=== PATIENT | female | born 2000 | race African-American/Black ===

== ENCOUNTER 2018-03-28 14:10 | Inpatient (IN) ==
[2018-03-28] MEDS ORDERED: LACTATED RINGERS 1,000 ML IV ONE (14:21)
[2018-03-28] MEDS ORDERED: MEPERIDINE 25 MG/1 ML VIAL IM ONE (14:23)
[2018-03-28] MEDS ORDERED: SODIUM CHLORIDE 0.9% 50 ML IV ONE (14:32)
[2018-03-28 14:38] LABS: Basophils % 0.1 % (0.0-0.8); Eosinophils # 0.1 10*3/uL (0.0-0.87); Eosinophils % 0.6 % (0.00-10.9); Hematocrit 29.4 VOL% (35.7-47.0); Hemoglobin 10.1 GM/DL (12.0-16.0); Immature Granulocytes % 0.5 %; Immature Granulocytes Absolute 0.04 #; Lymphocytes # 1.2 10*3/uL (1.4-4.0); Lymphocytes % 13.5 % (21.3-54.2); Mean Corpuscular HGB Conc 34.4 GM/DL (32-36); Mean Corpuscular Hemoglobin 31 PG (27-34); Mean Corpuscular Volume 90.7 FL (87-102); Mean Platelet Volume 9.9 FL (9.6-12.0); Monocytes # 1.6 10*3/uL (0.11-0.8); Monocytes % 18.4 % (1.7-12.7); Neutrophils # 5.8 10*3/uL (1.4-7.4); Neutrophils % 66.9 % (38.7-73.9); Platelet Count 191 T/CUMM (130-400); Red Blood Count 3.24 MC/CUMM (3.8-5.5); White Blood Count 8.7 T/CUMM (4-12)
[2018-03-28] MEDS: ACETAMINOPHEN 500 MG TABLET PO SCH ×2 (14:40→20:44)
[2018-03-28] MEDS: cefTRIAXone 1,000 MG in SYRINGE 1 EACH IV SCH (15:04)
[2018-03-28] MEDS: LACTATED RINGERS 1,000 ML IV SCH ×2 (16:49→23:07)
[2018-03-28 17:34] LABS: Eosinophils 1 % (0-10); Lymphocytes 14 % (20-55); Segmented Neutrophils 75 % (50-85)
[2018-03-28 17:35] LABS: Anisocytosis Slight; Microcytosis Slight; Polychromasia Slight
[2018-03-28 17:36] LABS: Platelet Estimate Normal; Total Cells Counted 100
[2018-03-28 18:27] LABS: Apearance,Urine CLOUDY (Clear); Bilirubin,Urine Negative (Negative); Blood, Urine Moderate mg/dL (Negative); Glucose,Urine (UA) Negative (Negative); Ketones,Urine Negative (Negative); Nitrite,Urine Positive (Negative); Protein,Urine 100 MG/DL; Urine Color Yellow (Yellow); Urine Specific Gravity 1.014 (1.001-1.035)
[2018-03-28 19:11] LABS: Bacteria,Urine Many /HPF (Few); Squamous Epithelial Cell,Urine Occasional /HPF (0-10); WBC,Urine 25-50 /HPF (0-6)
[2018-03-29] MEDS: ACETAMINOPHEN 500 MG TABLET PO SCH ×4 (02:35→21:17)
[2018-03-29] MEDS: LACTATED RINGERS 1,000 ML IV SCH ×3 (05:34→18:00)
[2018-03-29] MEDS: DOCUSATE SODIUM 100 MG CAPSULE PO SCH (08:41)
[2018-03-29] MEDS: FERROUS SULFATE ER 140 MG TABLET PO SCH (08:42)
[2018-03-29] MEDS: cefTRIAXone 1,000 MG in SYRINGE 1 EACH IV SCH (14:05)
[2018-03-30] MEDS: LACTATED RINGERS 1,000 ML IV SCH ×2 (01:00→07:00)
[2018-03-30] MEDS: ACETAMINOPHEN 500 MG TABLET PO SCH ×2 (02:15→08:48)
[2018-03-30] MEDS: FERROUS SULFATE ER 140 MG TABLET PO SCH (08:49)
[2018-03-30] MEDS: DOCUSATE SODIUM 100 MG CAPSULE PO SCH (08:50)
[2018-03-30 09:16] LABS: Basophils % 0.2 % (0.0-0.8); Eosinophils # 0.1 10*3/uL (0.0-0.87); Eosinophils % 1.2 % (0.00-10.9); Hematocrit 24.8 VOL% (35.7-47.0); Hemoglobin 8.5 GM/DL (12.0-16.0); Immature Granulocytes % 0.4 %; Immature Granulocytes Absolute 0.02 #; Lymphocytes # 1.4 10*3/uL (1.4-4.0); Lymphocytes % 27.5 % (21.3-54.2); Mean Corpuscular HGB Conc 34.3 GM/DL (32-36); Mean Corpuscular Hemoglobin 31 PG (27-34); Mean Corpuscular Volume 90.5 FL (87-102); Mean Platelet Volume 10.2 FL (9.6-12.0); Monocytes # 0.9 10*3/uL (0.11-0.8); Monocytes % 17.6 % (1.7-12.7); Neutrophils # 2.6 10*3/uL (1.4-7.4); Neutrophils % 53.1 % (38.7-73.9); Platelet Count 179 T/CUMM (130-400); Red Blood Count 2.74 MC/CUMM (3.8-5.5); Red Cell Distribution Width 12.9 % (9.3-17.3); White Blood Count 4.9 T/CUMM (4-12)
[2018-03-30 09:36] LABS: Atypical Lymphocytes Few; Eosinophils 1 % (0-10); Lymphocytes 24 % (20-55); Segmented Neutrophils 67 % (50-85); Total Cells Counted 100
[2018-03-30 09:37] LABS: Microcytosis 1+; Platelet Estimate Adequate
[2018-03-30 09:40] LABS: Alanine Aminotransferase 42 U/L (13-56); Alkaline Phosphatase 62 U/L (45-117); Aspartate Amino Transferase 27 U/L (0-37); Bilirubin,Total < 0.39 MG/DL (0.2-1.0); Blood Urea Nitrogen 4 MG/DL (7-18); Calcium 7.7 MG/DL (8.5-10.1); Glucose 82 MG/DL (74-106); Osmolality,Calculated 281.8 MOS/KG (273-304); Potassium 3.5 MMOL/L (3.5-5.1); Sodium 144 MMOL/L (136-145); Total Protein 5.4 G/DL (6.4-8.3)
[2018-03-30 12:42] VITALS: BP 103/58
[2018-03-30] MEDS: cefTRIAXone 1,000 MG in SYRINGE 1 EACH IV SCH (12:53)
== END 2018-03-30 14:00 | disposition home or self-care (01) | DRG 833 ==
LOC: N.OB 14:10
PROVIDERS: ADMIT Obstetrics & Gynecology; ATTEND Obstetrics & Gynecology

== ENCOUNTER 2018-08-14 16:00 | Inpatient (IN) ==
[2018-08-14] MEDS ORDERED: ONDANSETRON 4 MG/2 ML VIAL IV PRN (16:20)
[2018-08-14] MEDS ORDERED: DINOPROSTONE 10 MG VAG.INSERT VAG ONE (16:20)
[2018-08-14] MEDS ORDERED: MEPERIDINE 25 MG/1 ML VIAL IV PRN (16:20)
[2018-08-14] MEDS ORDERED: LACTATED RINGERS 1,000 ML IV SCH (16:30)
[2018-08-14] MEDS ORDERED: PENICILLIN G POTASSIUM INJ 6,000,000 UNIT in SODIUM CHLORIDE 0.9% 100 ML IV ONE (17:00)
[2018-08-14 17:55] LABS: Albumin 2.8 G/DL (3.4-5.0); Bilirubin,Total 0.6 MG/DL (0.2-1.0); Calcium 8.3 MG/DL (8.5-10.1); Osmolality,Calculated 277.1 MOS/KG (273-304); Total Protein 6.9 G/DL (6.4-8.3); Uric Acid 5.6 MG/DL (2.6-6.0)
[2018-08-14 18:29] LABS: Basophils % 0.2 % (0.0-0.8); Eosinophils % 0.2 % (0.00-10.9); Hematocrit 29.7 VOL% (35.7-47.0); Hemoglobin 9.2 GM/DL (12.0-16.0); Immature Granulocytes % 0.4 %; Immature Granulocytes Absolute 0.02 #; Lymphocytes # 1.3 10*3/uL (1.4-4.0); Lymphocytes % 27.9 % (21.3-54.2); Mean Corpuscular Volume 85.3 FL (87-102); Mean Platelet Volume 11.2 FL (9.6-12.0); Monocytes % 13.4 % (1.7-12.7); Neutrophils % 57.9 % (38.7-73.9); Platelet Count 234 T/CUMM (130-400); Red Blood Count 3.48 MC/CUMM (3.8-5.5); Red Cell Distribution Width 12.8 % (9.3-17.3); White Blood Count 4.6 T/CUMM (4-12)
[2018-08-14] MEDS: BUTORPHANOL 2 MG/ML VIAL IV PRN (23:58)
[2018-08-15] MEDS: BUTORPHANOL 2 MG/ML VIAL IV PRN ×2 (03:30→07:06)
[2018-08-15] MEDS ORDERED: OXYTOCIN/LR 20 UNIT/1,000 ML BAG IV SCH (06:00)
[2018-08-15] MEDS ORDERED: PENICILLIN G POTASSIUM INJ 3,000,000 UNIT in SODIUM CHLORIDE 0.9% 100 ML IV SCH ×2 (08:00→09:00)
[2018-08-15] MEDS ORDERED: CITRIC ACID/SODIUM CITRATE 30 ML UDCUP PO ONE (08:33)
[2018-08-15] MEDS ORDERED: ePHEDrine 50 MG/ML AMP IV PRN (08:33)
[2018-08-15] MEDS ORDERED: hydrOXYzine HCL 25 MG/1 ML VIAL IM PRN (08:33)
[2018-08-15] MEDS ORDERED: diphenhydrAMINE 50 MG/1 ML VIAL IV PRN ×2 (08:33)
[2018-08-15] MEDS ORDERED: PROMETHAZINE 25 MG/1 ML VIAL IM ONE (08:33)
[2018-08-15] MEDS ORDERED: LACTATED RINGERS 1,000 ML IV ONE (08:33)
[2018-08-15] MEDS ORDERED: NALOXONE 0.4 MG/ML VIAL IV PRN (08:33)
[2018-08-15] MEDS ORDERED: FAMOTIDINE 20 MG/2 ML VIAL IV ONE (08:33)
[2018-08-15] MEDS ORDERED: fentaNYL 2 MCG/ROPIV 0.2% EPID 100 ML EPIDURAL SCH (09:00)
[2018-08-15] MEDS: LACTATED RINGERS 1,000 ML IV SCH ×2 (09:02→17:11)
[2018-08-15 11:05] LABS: Apearance,Urine CLEAR (Clear); Bilirubin,Urine Negative (Negative); Blood, Urine Negative (Negative); Glucose,Urine (UA) Negative (Negative); Ketones,Urine 5 mg/dL (Negative); Nitrite,Urine Negative (Negative); Protein,Urine Negative; RBC,Urine <1 /HPF (0-4); Urine Color Straw (Yellow); Urine Specific Gravity 1.005 (1.001-1.035); Urine Urobilinogen < 2.0 EU/DL (0.2-1.0); WBC,Urine 1 /HPF (0-6)
[2018-08-15] MEDS ORDERED: ROPIVACAINE 0.5% 30 ML VIAL ONE (14:51)
[2018-08-15] MEDS ORDERED: miSOPROStol 200 MCG TABLET ONE (16:01)
[2018-08-15] MEDS ORDERED: TRANEXAMIC ACID 1,000 MG/10 ML VIAL ONE (16:01)
[2018-08-15] MEDS ORDERED: LIDOCAINE 1% 50 ML VIAL ONE (16:01)
[2018-08-15] MEDS ORDERED: METHYLERGONOVINE 0.2 MG/1 ML AMP ONE (16:02)
[2018-08-15] MEDS ORDERED: OXYTOCIN/LR 0 UNIT/0 ML BAG IV ONE (16:02)
[2018-08-15] MEDS ORDERED: CARBOPROST TROMETHAMINE 250 MCG/ML AMP IM ONE (16:02)
[2018-08-15] MEDS ORDERED: OXYTOCIN 10 UNIT/ML VIAL ONE (16:31)
[2018-08-15] MEDS ORDERED: OXYTOCIN/LR 30 UNIT/1,000 ML BAG IV ONE (16:38)
[2018-08-15] MEDS ORDERED: OXYTOCIN 10 UNIT/ML VIAL IV ONE (16:38)
[2018-08-15] MEDS ORDERED: miSOPROStol 200 MCG TABLET RECTAL ONE (16:42)
[2018-08-15] MEDS ORDERED: MAGNESIUM SULF RIDER 100 ML IV ONE (16:44)
[2018-08-15] MEDS ORDERED: MAGNESIUM SULF DRIP 40 GM/1,000 ML ML IV SCH (17:00)
[2018-08-15 18:43] LABS: Apearance,Urine CLEAR (Clear); Bilirubin,Urine Negative (Negative); Blood, Urine Large mg/dL (Negative); Glucose,Urine (UA) 50 mg/dL (Negative); Hyaline Casts,Urine 3 /LPF (0-3); Ketones,Urine 5 mg/dL (Negative); Mucus,Urine Occasional /LPF (Occasional); Nitrite,Urine Negative (Negative); Protein,Urine Negative; RBC,Urine 184 /HPF (0-4); Urine Color Colorless (Yellow); Urine Specific Gravity 1.004 (1.001-1.035); Urine Urobilinogen < 2.0 EU/DL (0.2-1.0); WBC,Urine 1 /HPF (0-6)
[2018-08-16] MEDS ORDERED: IBUPROFEN 800 MG TABLET PO PRN (07:06)
[2018-08-16 07:08] LABS: Basophils % 0.4 % (0.0-0.8); Eosinophils % 0.2 % (0.00-10.9); Hematocrit 30.9 VOL% (35.7-47.0); Immature Granulocytes % 0.4 %; Lymphocytes # 1.5 10*3/uL (1.4-4.0); Lymphocytes % 13.2 % (21.3-54.2); Mean Corpuscular HGB Conc 32.4 GM/DL (32-36); Mean Corpuscular Volume 83.1 FL (87-102); Mean Platelet Volume 11.1 FL (9.6-12.0); Monocytes % 10.7 % (1.7-12.7); Neutrophils % 75.1 % (38.7-73.9); Platelet Count 227 T/CUMM (130-400); Red Blood Count 3.72 MC/CUMM (3.8-5.5); Red Cell Distribution Width 12.9 % (9.3-17.3); White Blood Count 11.2 T/CUMM (4-12)
[2018-08-16 07:09] LABS: Immature Granulocytes Absolute 0.04 #
[2018-08-16] MEDS ORDERED: DIPH/TET/ACEL PERT BOOSTER VACCINE 0.5 ML VIAL IM ONE (09:36)
[2018-08-16] MEDS ORDERED: WITCH HAZEL PADS 100/JAR TOP PRN (09:36)
[2018-08-16] MEDS ORDERED: MAGNESIUM SULF DRIP 40 GM/1,000 ML ML IV SCH (09:36)
[2018-08-16] MEDS ORDERED: MAGNESIUM SULF RIDER 4 GM in PREMIX 1 EACH IV ONE (09:36)
[2018-08-16] MEDS ORDERED: RHO(D) IMMUNE GLOBULIN 300 MCG SYRINGE IM ONE (09:36)
[2018-08-16] MEDS ORDERED: ACETAMINOPHEN 325 MG TABLET PO PRN (09:36)
[2018-08-16] MEDS ORDERED: MEASLES/MUMPS/RUBELLA VACCINE 0.5 ML VIAL SUBCUT ONE (09:36)
[2018-08-16] MEDS ORDERED: BENZOCAINE 20%/MENTHOL 0.5% SPRAY 56 GM CAN TOP PRN (09:36)
[2018-08-16] MEDS ORDERED: IBUPROFEN 800 MG TABLET PO SCH (09:36)
[2018-08-16] MEDS ORDERED: HYDROCORTISONE 2.5% RECTAL CREAM 30 GM TUBE TOP PRN (09:36)
[2018-08-16] MEDS ORDERED: BISACODYL 10 MG SUPP RECTAL PRN (09:36)
[2018-08-16] MEDS ORDERED: LANOLIN 50% CREAM 0.3 OZ TUBE TOP PRN (09:36)
[2018-08-16] MEDS: DOCUSATE SODIUM 100 MG CAPSULE PO SCH ×2 (10:21→20:48)
[2018-08-17] MEDS ORDERED: IBUPROFEN 800 MG TABLET PO SCH (02:25)
[2018-08-17] MEDS: IBUPROFEN 800 MG TABLET PO SCH ×3 (03:03→19:17)
[2018-08-17 06:07] LABS: Basophils % 0.3 % (0.0-0.8); Eosinophils # 0.2 10*3/uL (0.0-0.87); Eosinophils % 2.3 % (0.00-10.9); Hematocrit 28.3 VOL% (35.7-47.0); Hemoglobin 8.7 GM/DL (12.0-16.0); Immature Granulocytes % 0.3 %; Immature Granulocytes Absolute 0.02 #; Lymphocytes # 2.3 10*3/uL (1.4-4.0); Lymphocytes % 35.1 % (21.3-54.2); Mean Corpuscular HGB Conc 30.7 GM/DL (32-36); Mean Corpuscular Volume 84.2 FL (87-102); Mean Platelet Volume 10.6 FL (9.6-12.0); Platelet Count 204 T/CUMM (130-400); Red Blood Count 3.36 MC/CUMM (3.8-5.5); Red Cell Distribution Width 13.1 % (9.3-17.3); White Blood Count 6.5 T/CUMM (4-12)
[2018-08-17 06:32] LABS: Alanine Aminotransferase 13 U/L (13-56); Albumin 2.3 G/DL (3.4-5.0); Alkaline Phosphatase 118 U/L (45-117); Aspartate Amino Transferase 19 U/L (0-37); Bilirubin,Total < 0.39 MG/DL (0.2-1.0); Blood Urea Nitrogen 4 MG/DL (7-18); Calcium 8.2 MG/DL (8.5-10.1); Glucose 88 MG/DL (74-106); Osmolality,Calculated 274.4 MOS/KG (273-304); Total Protein 5.9 G/DL (6.4-8.3)
[2018-08-17] MEDS: DOCUSATE SODIUM 100 MG CAPSULE PO SCH ×2 (09:49→21:08)
[2018-08-17] MEDS ORDERED: ACETAMINOPHEN 500 MG TABLET ONE (18:40)
[2018-08-17] MEDS ORDERED: ACETAMINOPHEN 500 MG TABLET PO PRN (18:43)
[2018-08-18] MEDS: IBUPROFEN 800 MG TABLET PO SCH (03:31)
[2018-08-18 07:32] VITALS: BP 131/80
[2018-08-18] MEDS: DOCUSATE SODIUM 100 MG CAPSULE PO SCH (08:44)
== END 2018-08-18 11:00 | disposition home or self-care (01) | DRG 807 ==
LOC: N.LD 16:00 → N.LDOUT 16:00 → N.LD 16:02 → N.OB 08-16 15:57
PROVIDERS: ADMIT Obstetrics & Gynecology; ATTEND Obstetrics & Gynecology